=== PATIENT | female | born 1950 | race Caucasian/White ===

== ENCOUNTER → 2017-09-19 | Outpatient (CLI) | payer MEDICARE, OTHER | END | disposition home or self-care (01) | LOC: PCVCCLINIC 11:03 | PROVIDERS: ATTEND Internal Medicine | DX: I44.7 Left bundle-branch block, unspecified (principal); I10 Essential (primary) hypertension; R06.00 Dyspnea, unspecified; I73.9 Peripheral vascular disease, unspecified; R94.31 Abnormal electrocardiogram [ECG] [EKG]; Z88.0 Allergy status to penicillin | CPT/HCPCS: 80061; 93005; G0463 ==

== ENCOUNTER → 2017-10-03 | Outpatient (CLI) | payer MEDICARE ==
[~2017-10-03] MED LIST: REGADENOSON 0.4 MG/5 ML DISP.SYRIN. IV ONE
--- NOTE | 2017-10-04 09:57 | PCVCIMAG ---
APPROVED REPORT Study performed: 10/03/2017 07:49:43 EXAM: Comprehensive 2D, Doppler, and color-flow Echocardiogram Patient Location: Echo lab Status: routine BSA: 2.04 HR: 63 bpmBP: 122/78 mmHg Rhythm: NSR Other Information Study Quality: Adequate Risk Factors: Cardiac Risk Factors: HTN Indications Dyspnea LBBB 2D Dimensions LVEF(%): 47.16 (>50%) IVSd: 12.85 (7-11mm) LVDd: 35.18 mm PWd: 11.42 (7-11mm)Ascending Ao: 36.22 (22-36mm) LVDs: 27.08 (25-40mm) Left Atrium: 36.53 (27-40mm) Aortic Root: 32.60 mm LV Single Plane 4CH: 56.41 % LV Single Plane 2CH: 75.78 %Nelson's LVEF: 66.10 % Biplane EF: 67.0 % Volumes Left Atrial Volume (Systole) Single Plane 4CH: 42.08 mLSingle Plane 2CH: 61.32 mL LA ESV Index: 25.00 mL/m2 Aortic Valve AoV Peak Champ.: 1.63 m/s AO Peak Gr.: 10.68 mmHgLVOT Max P.20 mmHg LVOT Max V: 1.25 m/s Mitral Valve E/A Ratio: 0.7 MV Decel. Time: 244.16 ms MV E Max Champ.: 0.53 m/s MV A Champ.: 0.71 m/s IVRT: 152.25 ms Pulmonary Valve PV Peak Champ.: 1.21 m/sPV Peak Gr.: 5.83 mmHg Pulmonary Vein P Vein S: 0.25 m/sP Vein A: 0.73 m/s P Vein D: 0.34 m/sP Vein A Dur.: 155.7 msec P Vein S/D Ratio: 0.74 Tricuspid Valve TR Peak Champ.: 2.42 m/s TR Peak Gr.: 23.51 mmHg Left Ventricle The left ventricle is normal size. There is normal LV segmental wall motion. There is normal left ventricular wall thickness. Left ventricular systolic function is normal. The left ventricular ejection fraction is within the normal range. LVEF is 65%. Grade I - abnormal relaxation pattern. Right Ventricle The right ventricle is normal size. The right ventricular systolic function is normal. Atria The left atrium size is normal. The right atrium size is normal. Aortic Valve The aortic valve is normal in structure. No aortic regurgitation is present. There is no aortic valvular stenosis. Mitral Valve The mitral valve is normal in structure. There is no mitral valve regurgitation noted. No evidence of mitral valve stenosis. Tricuspid Valve The tricuspid valve is normal in structure. Mild tricuspid regurgitation with PAP of 30 mmHg. Pulmonic Valve The pulmonary valve is normal in structure. There is no pulmonic valvular regurgitation. Great Vessels The aortic root is normal in size. IVC is normal in size and collapses with >50% inspiration Pericardium There is no pericardial effusion. <Conclusion> The left ventricle is normal size. LVEF is 65%. The aortic valve is normal in structure. The mitral valve is normal in structure. The tricuspid valve is normal in structure. Mild tricuspid regurgitation with PAP of 30 mmHg. The pulmonary valve is normal in structure. The pulmonary valve is normal in structure. The aortic root is normal in size. There is no pericardial effusion.
--- NOTE | 2017-10-04 21:50 | PCVCIMAG ---
APPROVED REPORT Exam: Nuclear Stress Test Indication: Dyspnea, LBBB Patient Location: Out-Patient Stress Nurse: Mariel Ashraf RN SD Tech:DONNELL Reis Ht: 5 ft 7 in Wt: 205 lbs BSA: 2.04 m2 HR: 61 bpm BP: 120/58 mmHg BMI: 32.1 Rhythm: NSR, LBBB Medical History Medical History: AGE, HYPERLIPIDEMIA, HTN, PVD Medications: Lisinopril-HCTZ, Fenofibrate Allergies: PCN Pretest Chest Pain Characteristics: No chest pain Exercise History: Sedentary Physical Disabilities: Knees NM EXAM: Myocardial Perfusion REST/STRESS Imaging Protocol: Rest Tc-99m/Stress Tc-99m 1 day Resting Data Rest SPECT myocardial perfusion imaging was performed in supine position 45 minutes following the intravenous injection of 11.5 mCi of Tc-99m Sestamibi. Time of rest injection: 0915 Date: 10/03/2017 Administration Route: IV Administration Site: Right AC Pharmacologic Stress Pharmacologic stress test was performed by injecting Regadenoson 0.4 mg IV push followed by the intravenous injection of 32.4 mCi of Tc-99m Sestamibi. Time of stress injection: 1100 Date: 10/03/2017 Administration Route: IV Administration Site: Right AC Gated Stress SPECT was performed 45 minutes after stress injection. The images were gated to evaluate regional wall motion and calculate left ventricular ejection fraction. Study Data Post stress, the left ventricular ejection was 72%.. SSS: 3 SRS: 2 SDS: 1 TID = 0.93. Perfusion There is a medium area of moderately reduced uptake in the entire segment of the inferior wall which is seen on the stress images and improves on the resting images. This area thickens and moves normally and is most consistent with ischemia. Wall Motion Normal left ventricular wall motion. Nuclear Conclusion 1. INTERMEDIATE TO HIGH RISK DUE TO DEMONSTRABLE INDUCIBLE ISCHEMIA Interpreted by: Camilo Mccray MD Electronically Approved: 10/04/2017 20:43:50 Stress Test Details Stress Test: Pharmacologic stress testing performed using 0.4 mg of regadenoson per 5 mL given IV over 10 seconds. Reason for pharmacologic stress test: STITCHES IN KNEE. HR Resting HR: 61 bpmMax Heart Rate (APMHR): 153 bpm Max HR Achieved: 90 bpmTarget HR (85% APMHR): 130 bpm % of APMHR: 58 Recovery HR: 75 bpm BP Resting BP: 120/58 mmHg Max BP: 122/60 mmHg ECG Resting ECG: Sinus Rhythm, LBBB Stress ECG: Sinus Rhythm, LBBB Recovery ECG: Sinus Rhythm, LBBB Clinical Reason for Termination: Completed protocol Stress Symptoms: Dyspnea, Leg Fatigue Exercise duration: 0 min 55 sec Exercise capacity: 1.0 METs Symptoms resolved during recovery. Stress ECG Conclusion 1. ADEQUATE RESPONSE TO IV LEXISCAN 2. INADEQUATE HEART RATE FOR ECG DIAGNOSIS <Conclusion> 1. ADEQUATE RESPONSE TO IV LEXISCAN 2. INADEQUATE HEART RATE FOR ECG DIAGNOSIS
== END | disposition home or self-care (01) ==
LOC: PCVCIMAG 08:24
PROVIDERS: ATTEND Internal Medicine
DX: I07.1 Rheumatic tricuspid insufficiency (principal); R06.00 Dyspnea, unspecified; I44.7 Left bundle-branch block, unspecified; I10 Essential (primary) hypertension; I73.9 Peripheral vascular disease, unspecified
CPT/HCPCS: 78452; 93017; 93306; A9500; J2785

== ENCOUNTER → 2017-10-19 | Outpatient (CLI) | payer MEDICARE | END | disposition home or self-care (01) | LOC: PCVCCLINIC 14:15 | DX: Z01.812 Encounter for preprocedural laboratory examination (principal); R93.1 Abnormal findings on diagnostic imaging of heart and coronary circulation | CPT/HCPCS: 36415 ==

== ENCOUNTER → 2017-10-26 | Outpatient (CLI) | payer MEDICARE ==
[~2017-10-26] MED LIST changes: +ASPIRIN 325 MG TABLET; +CLOPIDOGREL BISULFATE 75 MG TABLET; +DIAZEPAM 10 MG TABLET.; +EPINEPHrine 1 MG/ML VIAL; +HEPARIN SODIUM 5,000 UNIT/ML VIAL for PCVC.; +IODIXANOL 270 MG/ML 100 ML VIAL.; +IOHEXOL 350 MG/ML 100 ML VIAL.; +IV NORMAL SALINE 1000ML BAG 1,000 ML; +LIDOCAINE 1% Multi-Dose 20 ML VIAL.; +MIDAZOLAM HCL/PF 2 MG/2 ML VIAL.; -REGADENOSON 0.4 MG/5 ML DISP.SYRIN. IV ONE; +fentaNYL PF VIAL 100 MCG/2 ML VIAL
== END | disposition home or self-care (01) ==
LOC: PCVCINTER 07:09
DX: I70.212 Atherosclerosis of native arteries of extremities with intermittent claudication, left leg (principal); I25.10 Atherosclerotic heart disease of native coronary artery without angina pectoris; I70.1 Atherosclerosis of renal artery; I10 Essential (primary) hypertension
CPT/HCPCS: 36246; 36252; 75716; 76937; 93458; 99152; 99153; C1751; C1760; C1769; C1894; J0171; J1644; J2250; J3010; J7030; Q9967